=== PATIENT | female | born 1935 | race Caucasian/White ===

== ENCOUNTER 2018-05-13 08:57 | Inpatient (IN) | payer OTHER ==
[~2018-05-13] VITALS: Ht 165.1 cm; Wt 69.3 kg
[~2018-05-13 08:57] MED LIST: ALBU1.252 IH; AMLO10TA6 PO; BUDE10.2 IH; CLON0.5T12 PO; FURO20TA6 PO; LEVO500T2 PO; LISI10TA7 PO; METO-408 PO; PRAV40TA3 PO; PRED20TA3 PO; SERT50TA12 PO; WARF3TAB59 PO
[2018-05-13] MEDS ORDERED: IPRATROPIUM/ALBUTEROL SULFATE 3 ML SOLUTION IH ONE (09:17)
[2018-05-13 09:25] LABS: BASOPHILS % (AUTO) 0.7 % (0.0-5.0); EOSINOPHILS % (AUTO) 0.2 % (0.0-8.0); HEMATOCRIT 41.7 % (36-48); LYMPHOCYTES % (AUTO) 4.5 % (21.0-51.0); MEAN CORPUSCULAR HEMOGLOBIN 28.1 pg (27.0-33.0); MEAN CORPUSCULAR VOLUME 85.1 fL (79-99); MONOCYTES % (AUTO) 4.4 % (3.0-13.0); NEUTROPHILS % (AUTO) 90.2 % (40.0-77.0); NUCLEATED RED BLOOD CELLS 0.1 % (0.0-0.19); PLATELET COUNT (AUTO) 232 K/uL (130-400); RED CELL DISTRIBUTION WIDTH 14.8 % (11.0-15.5); WHITE BLOOD COUNT (AUTO) 14.2 K/uL (4.8-10.8)
[2018-05-13] MEDS ORDERED: METHYLPREDNISOLONE SOD SUCC 125MG/2ML VIAL ONE (09:26)
[2018-05-13] MEDS ORDERED: LEVOFLOXACIN 750 MG/D5W 150 ML 150 ML ONE (09:26)
[2018-05-13 09:32] LABS: CREATININE 0.8 mg/dL (0.5-1.5); POTASSIUM 3.8 mmol/L (3.5-5.1)
[2018-05-13 09:38] LABS: ALBUMIN 4.3 g/dL (3.5-5.0); BILIRUBIN,TOTAL 1.4 mg/dL (0.2-1.0); TOTAL PROTEIN, SERUM 7.3 g/dL (6.0-8.3)
[2018-05-13 09:49] LABS: ABG HCO3 21.1 mmol/L (21.0-28.0); ABG OXYGEN SATURATION 96.4 % (95.0-99.0); ABG PCO2 35 mmHg (32-45)
[2018-05-13 09:51] LABS: INR 1.02 (0.85-1.15); PARTIAL THROMBOPLASTIN TIME 27.8 SEC (26.3-35.5); PROTHROMBIN TIME 10.7 SEC (9.6-11.6)
[2018-05-13 09:58] LABS: B-TYPE NATRIURETIC PEPTIDE 403 pg/mL (0-100)
[2018-05-13] MEDS ORDERED: FUROSEMIDE 10 MG/ML 4ML VIAL ONE (10:16)
[2018-05-13 10:21] LABS: APPEARANCE,URINE Clear (CLEAR); BILIRUBIN,URINE Negative (NEGATIVE); COLOR,URINE Yellow (YELLOW); GLUCOSE, URINE (UA) Negative (NEGATIVE); KETONES,URINE Trace mg/dL (NEGATIVE); LEUKOCYTE ESTERASE ,URINE Negative (NEGATIVE); NITRATE,URINE Negative (NEGATIVE); OCCULT BLOOD,URINE Negative (NEGATIVE); PH,URINE >=9.0 (5.0-8.0); PROTEIN,URINE POS 1+ (NEGATIVE)
[2018-05-13] MEDS ORDERED: HYDRALAZINE HCL 20 MG/ML VIAL ONE (10:40)
[2018-05-13] MEDS ORDERED: ASPIRIN 325 MG TABLET ONE (10:40)
[2018-05-13 11:03] LABS: BACTERIA,URINE Few /HPF (None Seen); RBC,URINE 0-1 /HPF (0-1); SQUAMOUS EPITHELIAL CELL,UR 0-2 /HPF (0-2); WBC,URINE 0-1 /HPF (0-1)
[2018-05-13 16:45] VITALS: BP 185/73
[2018-05-13] MEDS ORDERED: MONT10TA24 PO (19:43)
[2018-05-13] MEDS ORDERED: ALBUTEROL SULFATE 0.083% 2.5 MG/3 ML INH IH PRN (19:45)
[2018-05-13] MEDS ORDERED: PRED5TAB44 PO (19:46)
[2018-05-13 20:11] VITALS: BP 167/67
[2018-05-13] MEDS: MONTELUKAST SODIUM 10 MG TAB PO SCH (21:00)
[2018-05-13] MEDS: FUROSEMIDE 10 MG/ML 4ML VIAL IVP SCH (23:01)
[2018-05-14 00:08] VITALS: BP 161/59
[2018-05-14 04:00] VITALS: BP 161/168
[2018-05-14] MEDS ORDERED: coumadin (05:16)
[2018-05-14 07:43] VITALS: BP 126/79
[2018-05-14] MEDS ORDERED: PREDNISONE 5 MG TABLET PO SCH (09:00)
[2018-05-14] MEDS: Metoprolol Succinate 25 MG PO SCH (09:00)
[2018-05-14] MEDS: FUROSEMIDE 10 MG/ML 4ML VIAL IVP SCH ×2 (10:01→21:16)
[2018-05-14] MEDS: AMLODIPINE BESYLATE 5 MG TAB PO SCH (10:01)
[2018-05-14 11:07] VITALS: BP 161/73
[2018-05-14] MEDS ORDERED: GUAIFENESIN-DM 200/20 MG 10 ML PO PRN (11:30)
[2018-05-14] MEDS: LEVOFLOXACIN 750 MG/D5W 150 ML 150 ML IV SCH (12:58)
[2018-05-14] MEDS: IPRATROPIUM/ALBUTEROL SULFATE 3 ML SOLUTION IH SCH ×3 (13:50→23:11)
[2018-05-14] MEDS: METHYLPREDNISOLONE SOD SUCC 40MG/ML 1ML IVP SCH ×2 (14:11→22:14)
[2018-05-14 16:19] VITALS: BP 159/60
[2018-05-14] MEDS: ACETAMINOPHEN 325 MG TAB PO PRN (18:43)
[2018-05-14 19:47] VITALS: BP 156/63
[2018-05-14] MEDS: MONTELUKAST SODIUM 10 MG TAB PO SCH (21:16)
[2018-05-15] VITALS (7 sets, daily range): BP systolic 137–159; BP diastolic 59–71
[2018-05-15 04:01] LABS: HEMATOCRIT 41.8 % (36-48); MEAN CORPUSCULAR HEMOGLOBIN 28.4 pg (27.0-33.0); MEAN CORPUSCULAR HGB CONC 33.6 g/dL (32.0-36.0); MEAN CORPUSCULAR VOLUME 84.5 fL (79-99); PLATELET COUNT (AUTO) 222 K/uL (130-400); RED BLOOD CELL COUNT(AUTO) 4.95 MIL/uL (4.00-5.50); RED CELL DISTRIBUTION WIDTH 14.8 % (11.0-15.5); WHITE BLOOD COUNT (AUTO) 10.8 K/uL (4.8-10.8)
[2018-05-15 04:09] LABS: CREATININE 1.1 mg/dL (0.5-1.5); POTASSIUM 3.2 mmol/L (3.5-5.1)
[2018-05-15] MEDS ORDERED: POTASSIUM CHLORIDE 10% ELIXIR 20 MEQ/15 ML UDCUP PO PRN (06:00)
[2018-05-15] MEDS ORDERED: POTASSIUM CHLORIDE 20MEQ/100ML 100 ML IV PRN (06:00)
[2018-05-15] MEDS ORDERED: LIDOCAINE HCL-MPF 1% 2ML VIAL IVP PRN (06:00)
[2018-05-15] MEDS: IPRATROPIUM/ALBUTEROL SULFATE 3 ML SOLUTION IH SCH ×4 (06:16→23:38)
[2018-05-15] MEDS: POTASSIUM CHLORIDE 20 MEQ ERTAB PO PRN ×3 (06:24→12:56)
[2018-05-15] MEDS: METHYLPREDNISOLONE SOD SUCC 40MG/ML 1ML IVP SCH ×3 (06:24→22:29)
[2018-05-15] MEDS: Metoprolol Succinate 25 MG PO SCH (09:00)
[2018-05-15] MEDS: FUROSEMIDE 10 MG/ML 4ML VIAL IVP SCH ×2 (09:17→22:29)
[2018-05-15] MEDS: AMLODIPINE BESYLATE 5 MG TAB PO SCH (09:17)
[2018-05-15] MEDS: PANTOPRAZOLE SODIUM 40 MG TABLET.DR PO SCH (09:17)
[2018-05-15] MEDS: ENOXAPARIN SODIUM 40 MG/0.4 ML SYRINGE SQ SCH (09:19)
[2018-05-15] MEDS: LEVOFLOXACIN 750 MG/D5W 150 ML 150 ML IV SCH (12:56)
[2018-05-15] MEDS: ACETAMINOPHEN 325 MG TAB PO PRN (22:28)
[2018-05-15] MEDS: MONTELUKAST SODIUM 10 MG TAB PO SCH (22:28)
[2018-05-16 03:56] VITALS: BP 147/70
[2018-05-16 04:22] LABS: CREATININE 1.2 mg/dL (0.5-1.5); MAGNESIUM 2.1 mg/dL (1.80-2.40); POTASSIUM 3.2 mmol/L (3.5-5.1)
[2018-05-16] MEDS: METHYLPREDNISOLONE SOD SUCC 40MG/ML 1ML IVP SCH ×2 (05:58→14:17)
[2018-05-16] MEDS: POTASSIUM CHLORIDE 20 MEQ ERTAB PO PRN ×3 (05:59→12:08)
[2018-05-16] MEDS: IPRATROPIUM/ALBUTEROL SULFATE 3 ML SOLUTION IH SCH ×2 (06:31→11:07)
[2018-05-16 07:38] VITALS: BP 141/63
[2018-05-16] MEDS: FUROSEMIDE 10 MG/ML 4ML VIAL IVP SCH (08:46)
[2018-05-16] MEDS: PANTOPRAZOLE SODIUM 40 MG TABLET.DR PO SCH (08:46)
[2018-05-16] MEDS: AMLODIPINE BESYLATE 5 MG TAB PO SCH (08:46)
[2018-05-16] MEDS: Metoprolol Succinate 25 MG PO SCH (08:47)
[2018-05-16] MEDS: ENOXAPARIN SODIUM 40 MG/0.4 ML SYRINGE SQ SCH (08:48)
[2018-05-16 11:32] VITALS: BP 157/78
[2018-05-16] MEDS ORDERED: LEVOFLOXACIN 750 MG TABLET PO SCH (12:00)
[2018-05-16 16:27] VITALS: BP 154/69
[2018-05-16] MEDS ORDERED: FUROSEMIDE 40 MG TABLET PO SCH (17:00)
== END 2018-05-16 18:00 | disposition home or self-care (01) | DRG 291 ==
LOC: EDH 08:57 → OBSVTOIN 10:29 → EDHIP 10:29 → 2AH 16:13
PROVIDERS: ADMIT Internal Medicine Critical Care Medicine; ATTEND Internal Medicine Critical Care Medicine
PROC: 5A09357 Assistance with Respiratory Ventilation, Less than 24 Consecutive Hours, Continuous Positive Airway Pressure (ICD-10-PCS; principal; 2018-05-13)
PROC: 5A09357 Assistance with Respiratory Ventilation, Less than 24 Consecutive Hours, Continuous Positive Airway Pressure (ICD-10-PCS; 2018-05-14)
PROC: 5A09357 Assistance with Respiratory Ventilation, Less than 24 Consecutive Hours, Continuous Positive Airway Pressure (ICD-10-PCS; 2018-05-15)
DX: I11.0 Hypertensive heart disease with heart failure (principal); J96.21 Acute and chronic respiratory failure with hypoxia; J44.0 Chronic obstructive pulmonary disease with (acute) lower respiratory infection; J44.1 Chronic obstructive pulmonary disease with (acute) exacerbation; I50.33 Acute on chronic diastolic (congestive) heart failure; J20.9 Acute bronchitis, unspecified; E66.9 Obesity, unspecified; F32.9 Major depressive disorder, single episode, unspecified; F41.9 Anxiety disorder, unspecified; I48.2 Chronic atrial fibrillation; K21.9 Gastro-esophageal reflux disease without esophagitis; Z96.649 Presence of unspecified artificial hip joint; Z68.25 Body mass index [BMI] 25.0-25.9, adult; Z74.01 Bed confinement status; Z87.891 Personal history of nicotine dependence; Z91.14 Patient's other noncompliance with medication regimen; Z91.19 Patient's noncompliance with other medical treatment and regimen; Z99.81 Dependence on supplemental oxygen
CPT/HCPCS: 36415; 36600; 71045; 71046; 80048; 80053; 81001; 82550; 82803; 82948; 83605; 83735; 83880; 84484; 85025; 85027; 85610; 85730; 87040; 87088; 87804; 93005; 94640; 94660; 94664; J0360; J1650; J1940; J1956; J2920; J2930; J7512

== ENCOUNTER 2019-01-26 06:06 | Observation (INO) | payer OTHER ==
[~2019-01-26] VITALS: Ht 160 cm; Wt 63.5 kg
[~2019-01-26 06:06] MED LIST changes: -ALBU1.252 IH; +ALBU8.5H8 IH; -AMLO10TA6 PO; -BUDE10.2 IH; -CLON0.5T12 PO; +FLUT1BLS3 IH; +FURO20TA4 PO; -FURO20TA6 PO; +HYDR25 PO; -LISI10TA7 PO; +LOSA25TA41 PO; +LOSA50TA2 PO; +MINO2.5 PO; +MONT10TA24 PO; +OMEP20TA25 PO; +POTA-79 PO; -PRAV40TA3 PO; +PRED10TA3 PO; -PRED20TA3 PO; +RIVA15TA PO; -SERT50TA12 PO; -WARF3TAB59 PO
[2019-01-26 06:47] LABS: BASOPHILS % (AUTO) 0.1 % (0.0-5.0); EOSINOPHILS % (AUTO) 0.6 % (0.0-8.0); HEMATOCRIT 35.7 % (36-48); LYMPHOCYTES % (AUTO) 11.8 % (21.0-51.0); MEAN CORPUSCULAR HEMOGLOBIN 23.4 pg (27.0-33.0); MEAN CORPUSCULAR HGB CONC 31.2 g/dL (32.0-36.0); MEAN CORPUSCULAR VOLUME 74.9 fL (79-99); MONOCYTES % (AUTO) 9.5 % (3.0-13.0); PLATELET COUNT (AUTO) 211 K/uL (130-400); RED BLOOD CELL COUNT(AUTO) 4.77 MIL/uL (4.00-5.50); RED CELL DISTRIBUTION WIDTH 17.5 % (11.0-15.5)
[2019-01-26 07:00] LABS: CREATININE 0.8 mg/dL (0.5-1.5); POTASSIUM 3.1 mmol/L (3.5-5.1)
[2019-01-26 07:03] LABS: INR 1.18 (0.85-1.15); PARTIAL THROMBOPLASTIN TIME 29.4 SEC (26.3-35.5); PROTHROMBIN TIME 12.3 SEC (9.6-11.6)
[2019-01-26 07:06] LABS: ALBUMIN 3.3 g/dL (3.5-5.0); TOTAL PROTEIN, SERUM 6.1 g/dL (6.0-8.3)
[2019-01-26] MEDS ORDERED: LABETALOL HCL 5 MG/ML 20ML VIAL IV ONE (07:27)
[2019-01-26] MEDS ORDERED: OXYMETAZOLINE HCL SPRAY 15 ML BOTTLE ONE (08:38)
[2019-01-26] MEDS ORDERED: IPRATROPIUM/ALBUTEROL SULFATE 3 ML SOLUTION IH ONE (09:43)
[2019-01-26] MEDS ORDERED: HYDRALAZINE HCL 20 MG/ML VIAL ONE ×2 (10:48→13:24)
--- NOTE | 2019-01-26 15:15 | NUR ---
DR. TAVARES WAS INFORMED OF THE CONSULT. NO ORDERS WAS GIVEN AND VERBALIZED TO SEE THE PATIENT AFTER OFFICE HOURS.
[2019-01-26 16:00] VITALS: BP 175/86
--- NOTE | 2019-01-26 16:26 | NUR ---
DR. TAVARES AT THE BEDSIDE, DISCUSSED THE PLAN OF CARE AND STARTED THE PATIENT ON AFRIN NASAL SPRAY Q30 MINUTES PRN FOR NOSEBLEED.
[2019-01-26] MEDS ORDERED: OXYMETAZOLINE HCL SPRAY 15 ML BOTTLE EN PRN (16:45)
[2019-01-26 17:10] LABS: HEMATOCRIT 35.2 % (36-48)
[2019-01-26] MEDS ORDERED: SODIUM CHLORIDE 0.9% 1000ML 1,000 ML IV SCH (17:45)
[2019-01-26 19:25] VITALS: BP 188/90
[2019-01-26] MEDS ORDERED: LOSARTAN 50 MG TABLET PO SCH (21:00)
[2019-01-26] MEDS: HYDRALAZINE HCL 25 MG TABLET PO SCH (21:10)
[2019-01-26] MEDS: MINOXIDIL 2.5 MG TAB PO SCH (21:10)
[2019-01-26] MEDS: METOPROLOL TARTRATE 25 MG TAB PO SCH (21:11)
--- NOTE | 2019-01-26 22:56 | NUR ---
chest PAIN Pt complained of chest pain non radiating 09/24, pt said its during the respiration most likely she feels the pain, with dyspnea upon exertion, pt denied any nausea nor vomiting at the moment, paging education analyst Kim SANCHES, maintained on fowlers position, maintained on aerosol mast at 28% with humidifier.
[2019-01-26] MEDS ORDERED: FUROSEMIDE 10 MG/ML 4ML VIAL IV STA (23:12)
[2019-01-26] MEDS ORDERED: HYDRALAZINE HCL 20 MG/ML VIAL IV PRN (23:15)
[2019-01-26] MEDS: BUDESONIDE 0.5 MG/2 ML INH IH SCH (23:25)
[2019-01-26] MEDS: IPRATROPIUM/ALBUTEROL SULFATE 3 ML SOLUTION IH SCH (23:25)
[2019-01-26] MEDS ORDERED: FUROSEMIDE 10 MG/ML 4ML VIAL ONE (23:33)
[2019-01-26] MEDS ORDERED: ACETAMINOPHEN 325 MG TAB ONE (23:42)
--- NOTE | 2019-01-27 00:02 | NUR ---
EKG AND TROP SPOKE WITH FRANCE STRONG OVER THE PHONE INFORMED ABOUT TROP I RESULT 0.13 AND RESULT OF EKG A FIB WITH COMPETING JUNCTIONAL PACEMAKER ST AND T ABNORMALITY CONSIDERING INFERO LATERAL ISCHEMIA, SHE ORDERED ADDITIONAL EKG IN THE MORNING , NO OTHER ORDERS MADE. PT'S VITAL SIGNS IMPROVED RR FROM 28 DOWN TO 22, BP IMPROVED WELL. PT VERBALIZED IMPROVED WITH CHEST PAIN FROM 4/10 TO 1/10. COMFORT MEAUSRES RENDERED, CONTINUOUS MONITORING
--- NOTE | 2019-01-27 00:02 | NUR ---
ANXIETY PILL DAUGHTER KEEP ON INSISTING ABOUT THE ANXIETY PILL IF [employer] SYSTEM[employer] TESTER COULD ORDERED, INFORMED [employer] SYSTEM[employer] TESTER ABOUT IT, SHE SAID NO ANXIETY PILL FOR NOW IT COULD COMPROMISED BREATHING, INFORMED DAUGHTER, DAUGHTER AND PATIENT VERBALIZED UNDERSTANDING. PATIENT WAS ABLE TO SLEEP MAINTAINED ON AEROSOL FACE MASK, ON FOWLERS POSITION. DID NOT COMPLAINED SO MUCH FOR CHEST PAIN 0- /10.
[2019-01-27 00:16] VITALS: BP 139/55
[2019-01-27 04:04] VITALS: BP 136/58
[2019-01-27] MEDS: IPRATROPIUM/ALBUTEROL SULFATE 3 ML SOLUTION IH SCH ×2 (06:31→11:01)
[2019-01-27] MEDS: BUDESONIDE 0.5 MG/2 ML INH IH SCH ×2 (06:31→11:12)
[2019-01-27 08:00] VITALS: BP 157/73
[2019-01-27] MEDS ORDERED: HYDRALAZINE HCL 20 MG/ML VIAL IV PRN (08:45)
[2019-01-27] MEDS ORDERED: LOSARTAN 50 MG TABLET PO SCH (09:00)
[2019-01-27] MEDS: HYDRALAZINE HCL 25 MG TABLET PO SCH ×2 (09:29→14:00)
[2019-01-27] MEDS: MINOXIDIL 2.5 MG TAB PO SCH (09:29)
[2019-01-27] MEDS: METOPROLOL TARTRATE 25 MG TAB PO SCH (09:29)
[2019-01-27] MEDS ORDERED: ACETAMINOPHEN 325 MG TAB PO PRN (11:30)
--- NOTE | 2019-01-27 11:39 | NUR ---
DCP CM met with pt discussed dc plans. Pt is independent mostly prior to admission, lives at home with spouse. Has oxygen equipments through [employer], rollator walker, wheelchair, nebulizer machine, bedside commode, cpap. Denies any other equipments/services. Pt feels safe to go back home, spouse able to assist with transportation and needs. DC plan to home once stable. CM to cont to follow up. Addendum: 01/27/19 at 1140 by MARGE BAKER LVN CM Amended: Links added.
[2019-01-27 12:00] VITALS: BP 92/43
[2019-01-27] MEDS ORDERED: POTASSIUM CHLORIDE 20 MEQ ERTAB PO PRN (12:00)
[2019-01-27] MEDS ORDERED: LIDOCAINE HCL-MPF 1% 2ML VIAL IVP PRN (12:00)
[2019-01-27] MEDS ORDERED: POTASSIUM CHLORIDE 10% ELIXIR 20 MEQ/15 ML UDCUP PO PRN (12:00)
[2019-01-27] MEDS ORDERED: POTASSIUM CHLORIDE 20MEQ/100ML 100 ML IV PRN (12:00)
--- NOTE | 2019-01-27 12:15 | NUR ---
INFORMED DR. GARCES REGARDING PATIENTS TROPONIN LEVELS. 0.13, 0.18 PENDING ONE MORE TO BE DONE. NEW ORDERS GIVEN TO CONSULT CARDIOLOGY. DR. FALL NOTIFIED BY MULTI DISCIPLINED LANGUAGE ANALYST. PENDING BILLIARD PARLOR MANAGER TO SEE PATIENT FOR DISCHARGE ORDERS.
[2019-01-27 16:00] VITALS: BP 122/45
--- NOTE | 2019-01-27 17:25 | NUR ---
LATE DISCHARGE DUE TO ASSISTANT MANAGER BILINGUAL FOR [employer] ROUNDING ON ALL PATIENT ON CENSUS FIRST THEN SITTING DOWN TO WRITE DISCHARGE ORDERS.
--- NOTE | 2019-01-27 18:00 | NUR ---
DISCHARGE INSTRUCTIONS GIVEN. PATIENT/DAUGHTER INSTRUCTED TO FOLLOW UP WITH PCP, HEART DOCTOR . DR. TAVARES AND PRESCRIPTIONS GIVEN TO HAVE FILLED. ALL QUESTIONS ANSWERED . LATE DISCHARGE DUE MANAGER FOOD PRACTIONER PUTTING ORDERS LATE.
== END 2019-01-27 18:15 | disposition home or self-care (01) ==
LOC: EDH 06:06 → EDHIP 11:14 → 3AH 13:55
PROVIDERS: ADMIT Internal Medicine Critical Care Medicine; ATTEND Internal Medicine Critical Care Medicine
DX: R04.0 Epistaxis (principal); J44.9 Chronic obstructive pulmonary disease, unspecified; I48.2 Chronic atrial fibrillation; K21.9 Gastro-esophageal reflux disease without esophagitis; E66.01 Morbid (severe) obesity due to excess calories; D68.9 Coagulation defect, unspecified; E78.5 Hyperlipidemia, unspecified; G47.33 Obstructive sleep apnea (adult) (pediatric); J96.11 Chronic respiratory failure with hypoxia; Z87.891 Personal history of nicotine dependence; Z79.01 Long term (current) use of anticoagulants; I11.0 Hypertensive heart disease with heart failure; I50.9 Heart failure, unspecified; R79.89 Other specified abnormal findings of blood chemistry; D64.9 Anemia, unspecified; Z68.24 Body mass index [BMI] 24.0-24.9, adult
CPT/HCPCS: 36415; 71046; 80053; 84484 ×3; 85014; 85018; 85025; 85610; 85730; 93005 ×2; 94640 ×6; 94664; 99291; G0378 ×29; J0360 ×2; J1940; J3490